=== PATIENT | female | born 1965 | race Caucasian/White ===

== ENCOUNTER 2017-12-21 17:00 | Inpatient (IN) | payer OTHER, MEDICAID ==
[~2017-12-21] VITALS: Ht 152.4 cm; Wt 32.5 kg
[2017-12-21 17:02] VITALS: BP 142/71
[2017-12-21 17:21] LABS: ABSOLUTE LYMPHOCYTES 1.1 thou/uL (0.8-5.3); ABSOLUTE MONOCYTES 0.5 thou/uL (0.0-1.2); ABSOLUTE NEUTROPHILS 4.4 thou/uL (1.6-8.1); BASOPHILS 0.7 %; EOSINOPHILS 0.2 %; HEMOGLOBIN 8.6 gm/dL (12.0-15.0); LYMPHOCYTES 17.8 %; MCH 24.9 pg (26.0-34.0); MCHC 30.9 g/dL (28.0-37.0); MCV 80.6 fL (80.0-100.0); MONOCYTES 7.7 %; MPV 7.6 fl. (7.2-11.1); NUCLEATED RBCS 0 /100WBC; PLATELET COUNT* 816 thou/uL (150-400); POLYS 73.6 %; RBC 3.47 mil/uL (4.20-5.00); RDW-CV 23.5 % (10.5-14.5)
[2017-12-21 17:27] LABS: ANION GAP 7 mmol/L (7-16); BUN 24 mg/dL (7-18); CALCIUM 9.7 mg/dL (8.5-10.1); CHLORIDE 99 mmol/L (98-107); CO2 28 mmol/L (21-32); CREATININE 0.5 mg/dL (0.6-1.3); GLUCOSE 85 mg/dL (70-99); SODIUM 134 mmol/L (136-145)
[2017-12-21 17:38] LABS: ALBUMIN 2.8 g/dL (3.4-5.0); ALKALINE PHOSPHATASE 117 U/L (46-116); LIPASE 91 U/L (73-393); SGOT 13 U/L (15-37); SGPT 9 U/L (30-65); TOTAL BILIRUBIN 0.3 mg/dL (<0.1-1.0); TOTAL PROTEIN 9.5 g/dL (6.4-8.2); TROPONIN-I LEVEL <0.06 ng/mL (<0.06)
[2017-12-21 17:57] LABS: INR 2.6; PROTIME 24.8 Seconds (9.20-11.50)
[2017-12-21] MEDS ORDERED: OPIUM TINCTURE PO (18:03)
[2017-12-21] MEDS ORDERED: COLESTID1 GM PO (18:04)
[2017-12-21] MEDS ORDERED: ZOFRAN ODT4 M1 PO (18:04)
[2017-12-21] MEDS ORDERED: SYNTHROID75 MCG PO (18:06)
[2017-12-21] MEDS ORDERED: DOLOPHINE HCL10 MG PO (18:06)
[2017-12-21] MEDS ORDERED: XANAX 0.25 MG0.25 MG PO (18:06)
[2017-12-21 18:17] LABS: PLATELET ESTIMATE INCREASED
[2017-12-21 18:19] LABS: ANISOCYTOSIS 2+; LARGE PLATELETS OCCASIONAL
[2017-12-21 18:20] LABS: MICROCYTES 1+
[2017-12-21] MEDS ORDERED: MELATONIN5 M1 PO (18:22)
[2017-12-21] MEDS ORDERED: ZYRTEC10 M4 PO (18:22)
[2017-12-21 20:11] VITALS: BP 133/81
[2017-12-21 21:00] VITALS: BP 132/78
[2017-12-21] MEDS ORDERED: KEPPRA 500 MG500 M1 PO (22:04)
[2017-12-21] MEDS ORDERED: MUCINEX600 MG PO (22:05)
[2017-12-21] MEDS ORDERED: IRON325 PO (22:06)
[2017-12-21] MEDS ORDERED: LOPERAMIDE 2 MG2 M1 PO (22:06)
[2017-12-21] MEDS ORDERED: PEPCID20 MG PO (22:06)
[2017-12-21] MEDS ORDERED: DUONEB 2.5-0.5 M3 ML INH (22:07)
[2017-12-21] MEDS ORDERED: CLARITIN10 MG PO (22:08)
[2017-12-21] MEDS ORDERED: UNICOMPLEX M TA1 TA1 PO (22:09)
[2017-12-21] MEDS ORDERED: ZOFRAN ODT4 MG DISSOLVE (22:09)
[2017-12-21] MEDS ORDERED: TYLENOL325 MG PO (22:10)
[2017-12-21] MEDS ORDERED: TESSALON PERLE100 MG PO (22:10)
[2017-12-21] MEDS ORDERED: LOMOTIL TABLET1 EACH PO (22:11)
[2017-12-21] MEDS ORDERED: COUMADIN 5 MG TA5 M1 PO (22:12)
[2017-12-21] MEDS ORDERED: PROTONIX40 M1 PO (22:13)
[2017-12-21] MEDS ORDERED: TEARS AGAIN15 ML OPHTHALMIC (22:19)
[2017-12-21] MEDS ORDERED: DOXYCYCLINE 10100 MG PO (22:20)
[2017-12-22 08:00] VITALS: BP 121/51
[2017-12-22 09:48] LABS: HEMATOCRIT 22.5 % (37.0-47.0); MPV 6.9 fl. (7.2-11.1); NUCLEATED RBCS 0 /100WBC
[2017-12-22 09:50] LABS: ABSOLUTE BASOPHILS 0.1 thou/uL (0.0-0.2); ABSOLUTE EOSINOPHILS 0.1 thou/uL (0.0-0.7); ABSOLUTE LYMPHOCYTES 0.8 thou/uL (0.8-5.3); ABSOLUTE NEUTROPHILS 4.7 thou/uL (1.6-8.1); BASOPHILS 0.9 %; LYMPHOCYTES 11.8 %; MCH 24.7 pg (26.0-34.0); MCHC 30.6 g/dL (28.0-37.0); MCV 80.8 fL (80.0-100.0); MONOCYTES 15.6 %; PLATELET COUNT* 748 thou/uL (150-400); POLYS 70.7 %; RBC 2.78 mil/uL (4.20-5.00); RDW-CV 23.3 % (10.5-14.5); WBC 6.7 thou/uL (4.0-11.0)
[2017-12-22 09:53] LABS: HEMOGLOBIN 6.9 gm/dL (12.0-15.0)
[2017-12-22 09:54] LABS: CALCIUM 8.7 mg/dL (8.5-10.1); CREATININE 0.5 mg/dL (0.6-1.3); POTASSIUM 3.3 mmol/L (3.5-5.1)
[2017-12-22 10:07] LABS: PLATELET ESTIMATE INCREASED
[2017-12-22 10:09] LABS: ANISOCYTOSIS 2+
[2017-12-22 10:12] LABS: MICROCYTES 1+
[2017-12-22 10:13] LABS: HYPOCHROMASIA 1+
[2017-12-22 14:15] VITALS: BP 117/66; BP 121/62; BP 122/65; BP 127/63; BP 128/56
[2017-12-22 16:07] LABS: % SATURATION 4 % (20-39); IRON 10 ug/dL (50-175)
--- NOTE | 2017-12-22 17:07 | EKG ---
[place] [address] ELECTROCARDIOGRAM REPORT Name: MICHELLE VERONICA Room: [address] IN [facility]#: [id number] Admission: 12/21/17 Attend Phys: Khris Cueva Discharge: Date of : 67 Report #: [id number] THIS REPORT FOR: //name// [facility] ED Test Date: 2017-12-21 Test Time: 17:02:11 Pat Name: MICHELLE VERONICA Department: Room: Gender: F [employer] House Worker: : 1965 Requested By: Norman Elizondo Order Number: [id number] MD: Narinder Medellin Measurements Intervals [place] Rate: 77 P: 72 [place]: 127 QRS: 72 QRSD: 89 T: 58 QT: 474 QTc: 537 Interpretive Statements Sinus rhythm Abnormal R-wave progression, early transition Consider left ventricular hypertrophy Prolonged QT interval No previous ECG available for comparison Electronically Signed On 12-22-2017 17:07:22 CDT by Narinder Medellin [email or web address] <ELECTRONICALLY SIGNED> By: Narinder Medellin MD, [facility] 12/22/17 1707 170 01 Narinder Medellin MD, [facility] /EPI
[2017-12-22 20:21] LABS: HEMATOCRIT 31.3 % (37.0-47.0)
[2017-12-22 20:23] LABS: HEMOGLOBIN 9.8 gm/dL (12.0-15.0)
[2017-12-22 20:33] VITALS: BP 145/69
[2017-12-22 21:20] LABS: BE 0.4 mmol/L (-2 to +3); HCO3 25.4 mmol/L (22.0-26.0); PCO2 42.9 mmHg (35.0-45.0); pH 7.391 (7.340-7.450)
[2017-12-22 23:00] VITALS: BP 119/72
[2017-12-22 23:28] LABS: URINE BILIRUBIN NEGATIVE (Negative); URINE BLOOD 1+ (Negative); URINE CLARITY CLEAR; URINE COLOR YELLOW; URINE GLUCOSE-RANDOM NEGATIVE (Negative); URINE KETONES NEGATIVE (Negative); URINE NITRITE-REFLEX NEGATIVE (Negative); URINE PROTEIN NEGATIVE (Negative); URINE UROBILINOGEN 0.2 E.U./dl (0.2-1.0)
[2017-12-22 23:43] LABS: URINE LEUKOCYTES-REFLEX 3+ (Negative)
[2017-12-23] VITALS (22 sets, daily range): BP systolic 101–140; BP diastolic 42–766
[2017-12-23 01:32] LABS: BACTERIA-REFLEX 1-9 Few /HPF (None Seen); CASTS None Seen /LPF (None Seen); SQUAMOUS NONE SEEN /LPF (0-3); URINE RBC 3-10 Few /HPF (0-2); URINE WBC-REFLEX >25 Many /HPF (0-5)
[2017-12-23 01:33] LABS: CRYSTALS None Seen /LPF (None Seen); YEAST-REFLEX Present (None Seen)
[2017-12-23 02:07] LABS: IgA 497 mg/dL (87-352); IgG 1550 mg/dL (700-1600); IgM 96 mg/dL (26-217)
[2017-12-23 04:34] LABS: HEMATOCRIT 32.6 % (37.0-47.0); HEMOGLOBIN 10.1 gm/dL (12.0-15.0); MCH 24.9 pg (26.0-34.0); MCHC 31.1 g/dL (28.0-37.0); MCV 79.9 fL (80.0-100.0); MPV 7.5 fl. (7.2-11.1); NUCLEATED RBCS 0 /100WBC; PLATELET COUNT* 753 thou/uL (150-400); RBC 4.08 mil/uL (4.20-5.00); RDW-CV 21.7 % (10.5-14.5); WBC 12.4 thou/uL (4.0-11.0)
[2017-12-23 05:06] LABS: CALCIUM 9.2 mg/dL (8.5-10.1); CREATININE 0.6 mg/dL (0.6-1.3)
[2017-12-23 05:24] LABS: POTASSIUM 2.5 mmol/L (3.5-5.1)
[2017-12-23 07:04] LABS: ABSOLUTE EOSINOPHILS 0.1 thou/uL (0.0-0.7); ABSOLUTE LYMPHOCYTES 0.1 thou/uL (0.8-5.3); ABSOLUTE MONOCYTES 2.5 thou/uL (0.0-1.2); ABSOLUTE NEUTROPHILS 9.7 thou/uL (1.6-8.1)
[2017-12-23 07:05] LABS: ANISOCYTOSIS 2+; PLATELET ESTIMATE INCREASED; POLYCHROMASIA 1+
[2017-12-23 07:59] LABS: INR 2.4; PROTIME 23.2 Seconds (9.20-11.50)
[2017-12-24] VITALS (19 sets, daily range): BP systolic 86–162; BP diastolic 39–94
[2017-12-24 04:00] LABS: ABSOLUTE BASOPHILS 0.1 thou/uL (0.0-0.2); ABSOLUTE LYMPHOCYTES 0.7 thou/uL (0.8-5.3); ABSOLUTE NEUTROPHILS 6.7 thou/uL (1.6-8.1); BASOPHILS 0.7 %; EOSINOPHILS 0.4 %; HEMATOCRIT 27.5 % (37.0-47.0); HEMOGLOBIN 8.7 gm/dL (12.0-15.0); LYMPHOCYTES 8.7 %; MCHC 31.6 g/dL (28.0-37.0); MCV 79.2 fL (80.0-100.0); MONOCYTES 11.3 %; MPV 7.2 fl. (7.2-11.1); NUCLEATED RBCS 0 /100WBC; PLATELET COUNT* 681 thou/uL (150-400); POLYS 78.9 %; RBC 3.47 mil/uL (4.20-5.00); RDW-CV 22.3 % (10.5-14.5); WBC 8.6 thou/uL (4.0-11.0)
[2017-12-24 04:03] LABS: INR 2.3; PROTIME 22.1 Seconds (9.20-11.50)
[2017-12-24 04:13] LABS: ALBUMIN 2.3 g/dL (3.4-5.0); CALCIUM 9.2 mg/dL (8.5-10.1); CREATININE 0.5 mg/dL (0.6-1.3); MAGNESIUM 2.3 mg/dL (1.8-2.4); POTASSIUM 3.8 mmol/L (3.5-5.1); TOTAL BILIRUBIN 0.3 mg/dL (<0.1-1.0); TOTAL PROTEIN 7.3 g/dL (6.4-8.2)
--- NOTE | 2017-12-24 09:41 | CON ---
[address] [address] CONSULTATION Name: MICHELLE ALSTON Room: [address] IN [facility]#: [id number] Admission: 12/21/17 Attend Phys: Khris Cueva Discharge: Date of : 67 Report #: [id number] THIS REPORT FOR: //name// CC: Brian Fitzgerald DATE OF SERVICE: 12/23/2017 CONSULTATION: Infectious diseases. HISTORY OF PRESENT ILLNESS: Michelle Alston is a very debilitated 52-year-old female who comes to the hospital with chief complaint of hemoglobin of 6.9. The patient had been hospitalized at [facility] from 12/06/2017 to 12/14/2017 for anemia and pneumonia. Apparently, she was discharged with a hemoglobin of 7.0. The patient says that she has had chest pain and abdominal pain in the last few weeks, but none currently. She presented to the ER. She was not happy with the [facility] and wanted to come to a different hospital. Workup demonstrated fecal impaction, right lower lobe infiltrate with air bronchograms and positive C. difficile PCR test. In this setting, Infectious Disease consultation was requested. PAST MEDICAL HISTORY: Shows the patient has been very debilitated by multiple sclerosis and her case has been further complicated by lupus and rheumatoid arthritis. The patient has a diagnosis of ulcerative colitis and short bowel syndrome. The patient denies having any history of C. difficile disease and said she tends to have chronic diarrhea because of the short gut. During recent hospitalization, she was diagnosed with deep vein thrombosis and pulmonary embolus and was placed on warfarin. Other conditions include hypothyroidism, chronic low back pain requiring methadone. MEDICATION RECONCILIATION: Vancomycin 125 mg p.o. q. 6 hours, potassium chloride p.o., pantoprazole 40 mg IV b.i.d., Zosyn 3.375 grams IV every 6 hours, sodium phosphate, magnesium IV and p.o., potassium 20 mEq q. 2 hours p.r.n. low potassium, methadone 5 mg b.i.d., bisacodyl 10 mg rectal daily p.r.n., hydralazine 10 mg q. 6 hours p.r.n., docusate 100 mg p.o. daily, MiraLax 17 grams p.o. daily, multivitamin with minerals daily, loratadine 10 mg daily, levetiracetam 500 mg p.o. b.i.d., guaifenesin 600 mg b.i.d., colestipol 1 gram daily, iron 325 mg b.i.d., L-thyroid 0.075 mg daily, Zofran 4 mg p.o. q. 8 hours p.r.n., melatonin 5 mg at bedtime, benzonatate 100 mg p.o. t.i.d., alprazolam 0.25 mg p.o. t.i.d., Tylenol 650 mg p.o. q. 6 hours p.r.n., albuterol inhaler 3 mL q.i.d., Lasix 40 mg 1 time dose in the ER. The patient was on doxycycline 100 mg b.i.d. prior to coming to the hospital. ALLERGIES: THE PATIENT HAS A HISTORY OF SULFA ALLERGY. FAMILY HISTORY: [place] [address] CONSULTATION Name: MICHELLE ALSTON Room: [address] IN [facility].#: [id number] Admission: 12/21/17 Attend Phys: Khris Cueva Discharge: Date of : 67 Report #: [id number] SOCIAL HISTORY: The patient is single. She has no children. She was living in the [facility], but recently moved back to [place] because her father lives here. She has a father age 8282 years old and unable to visit her in her fci. She does require chronic skilled facility because of her debility. She is generally bedbound and says she really does not get up to the wheelchair because it is too painful. She can use a commode if there are grab bars available. No history of tobacco, alcohol nor illegal drugs. The patient has been disabled since 2000. 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 REVIEW OF SYSTEMS: CONSTITUTIONAL: Somewhat difficult because the patient has a very weak voice, does not articulate clearly because of her multiple sclerosis and is very hard to understand. She said that she is very uncomfortable. She knows she is very weak. She is not complaining of fevers, chills or sweats. She is not complaining of headache. She notes difficulty swallowing and has a weak cough. The patient is not complaining of chest pain currently. She is not complaining of shortness of breath. GASTROINTESTINAL: She is complaining of increased hunger. She is complaining of constipation with some abdominal discomfort, but no severe pain. GENITOURINARY: No complaints. EXTREMITIES: Weak, uncomfortable, no complaints. PHYSICAL EXAMINATION: GENERAL: The patient appears much older than her stated age, very weak, uncomfortable, but not in any distress. VITAL SIGNS: Show maximum measured temperature 98.6, blood pressure 142/71. Her weight initially was recorded as 75 pounds and then 2 days later a followup weight was 61 pounds. She received one dose of diuretics. SKIN: Shows some erythema over pressure points and a small breakdown over the sacrum. ENT: Shows temporal wasting. NECK: Supple. HEART: Sounds S1, S2. Difficult to auscultate because the patient is so thin. RESPIRATORY: Breath sounds are coarse and diminished. The patient had a small cough and she was having breakfast when I visited. ABDOMEN: The belly is scaphoid, soft, not tender. EXTREMITIES: Very thin. LABORATORY EXAMINATION: The white count initially was 6.0 and today is 12.4 with 29% polys and 49% bands, hemoglobin was initially 6.9 and is up to 10.1 with transfusion, hematocrit 32.6, platelets 753,000. Electrolytes: Sodium 140, potassium 2.5, chloride 99, bicarbonate 28, BUN 23, creatinine 0.6, glucose 75. The iron level was 10, represent 4% saturation. Total iron binding capacity was low at 242. Prealbumin was low at 10. The urinalysis shows greater than 25 white cells. Urine culture is pending[place] [address] CONSULTATION Name: JEREMÍASMICHELLE C Room: [address] IN ..#: [id number] Admission: 12/21/17 Attend Phys: Khris Cueva Discharge: Date of : 67 Report #: [id number] difficile nucleic acid was positive. The INR was 2.4. CT angiogram showed the right lower lobe infiltrate. No acute pulmonary emboli. In summary, the patient who was transferred from her fci to acute care for reasons which are not apparent from the records which I reviewed. The patient really cannot tell me what changed in her chronic condition. She is significantly anemic, but this has been somewhat chronic and attributed to her ulcerative colitis and possible GI bleed. The patient also has a positive C. difficile titer, but gives me no history of C. difficile disease. She appears to be at risk for aspiration and does have an infiltrate. The patient represents a challenging problem in that she appears to have infections in the urinary and pulmonary systems, but has a positive C. difficile titer, making antibiotic treatment significantly more problematic. In addition, she is severely malnourished with low iron, low electrolytes, low protein, and significantly underweight. I suggest we simplify the antibiotics from vancomycin and Zosyn to cefepime 500 mg IV every 12 hours. This is not ideal for aspiration pneumonia, but covers most of the cantu pathogens and is less likely to reactivate C. difficile compared to the vancomycin and Zosyn. The patient should be on prophylactic vancomycin and received probiotics. Sputum culture if possible would be helpful to further direct therapy. We can do an MRSA swab of the nares. With the patient's poor nutrition, I would like to check CMP, magnesium levels and zinc levels. I would like the dietitian to bring protein supplements. The patient says she can drink up to 5 strawberry Ensures a day. The patient has a history of hypothyroidism, so we should check TSH. Jc might be a helpful supplement, but I think it is more important the patient take protein and I do not think she should take as much protein as she can. We will have the wound care center nurse evaluate the patient after the seekend. I suspect that she may benefit from a low air loss mattress because of the skin breakdown and risk for further breakdown. I appreciate the opportunity to offer input in the care of this complex patient. I will be happy to follow her through the weekend until Dr. Carson returns on Monday. Thank you for this consultation. <ELECTRONICALLY SIGNED> By: Kimo Garcia MD 12/24/17 0941 [id number] [id number] Garcia MD /claude
[2017-12-24 16:45] LABS: BE 1.6 mmol/L (-2 to +3); HCO3 26.3 mmol/L (22.0-26.0); PCO2 41.7 mmHg (35.0-45.0); PO2 110.9 mmHg (75.0-100.0); pH 7.417 (7.340-7.450)
[2017-12-25] VITALS (9 sets, daily range): BP systolic 80–159; BP diastolic 39–92
[2017-12-25 06:32] LABS: HEMATOCRIT 36.3 % (37.0-47.0); MCH 24.3 pg (26.0-34.0); MCHC 29.5 g/dL (28.0-37.0); MCV 82.4 fL (80.0-100.0); MPV 7.1 fl. (7.2-11.1); NUCLEATED RBCS 0 /100WBC; RBC 4.41 mil/uL (4.20-5.00); RDW-CV 22.5 % (10.5-14.5); WBC 23.2 thou/uL (4.0-11.0)
[2017-12-25 06:37] LABS: HEMOGLOBIN 10.7 gm/dL (12.0-15.0); PLATELET COUNT* 811 thou/uL (150-400)
[2017-12-25 06:47] LABS: ALBUMIN 2.3 g/dL (3.4-5.0); CALCIUM 9.9 mg/dL (8.5-10.1); CREATININE 0.6 mg/dL (0.6-1.3); POTASSIUM 3.9 mmol/L (3.5-5.1); TOTAL BILIRUBIN 0.3 mg/dL (<0.1-1.0); TOTAL PROTEIN 8.8 g/dL (6.4-8.2)
[2017-12-25 06:50] LABS: INR 2.2
[2017-12-25 06:51] LABS: PREALBUMIN 10.6 mg/dL (18.0-35.7)
[2017-12-25 08:01] LABS: ABSOLUTE LYMPHOCYTES 1.6 thou/uL (0.8-5.3); ABSOLUTE MONOCYTES 0.9 thou/uL (0.0-1.2); ABSOLUTE NEUTROPHILS 20.6 thou/uL (1.6-8.1); ANISOCYTOSIS 1+; HYPOCHROMASIA 1+; PLATELET ESTIMATE INCREASED; POLYCHROMASIA 1+
[2017-12-25 08:02] LABS: POIKILOCYTOSIS 1+
--- NOTE | 2017-12-25 08:22 | CON ---
[address] [address] CONSULTATION Name: MICHELLE VERONICA Room: [address] IN .R.#: [id number] Admission: 12/21/17 Attend Phys: Khris Cueva Discharge: Date of : 67 Report #: [id number] THIS REPORT FOR: //name// CC: Brian Westbrook [facility] DICTATED BY: Kate Washington [facility] DATE OF SERVICE: 12/22/2017 Please note at the time of this dictation, the patient was seen and physically examined by myself. REASON FOR CONSULTATION: Acute anemia. HISTORY OF PRESENT ILLNESS: This is a 52-year-old female who presented to the Emergency Room with a low hemoglobin. She was sent from [facility] for hemoglobin of 7. Upon arrival to the ER, she was noted to have hemoglobin of 6.9. She denies any nausea, vomiting of any blood or any blood noted in her stools. The patient was just recently discharged from [facility] in [facility] on 12/14/2017 and in reviewing an extensive amount of records, her hemoglobin upon discharge was 7. The patient's GI, was consulted out there at [facility] and it was felt that she had no overt bleeding that no endoscopy evaluation was warranted. It appears that approximately a month ago, her hemoglobin was 10 based upon the records that we have thus far. Records have been shifted through from [facility] but there are still records to come from [facility] which have not been reviewed yet. In talking with the patient, she states the last time she had any endoscopy studies, they were done back in 2005 in [place], [place] at [facility]. The patient states she does have some difficulty swallowing as well. ALLERGIES: BACTRIM. MEDICATIONS: From home include melatonin, Colestid, Xanax, methadone, levothyroxine, Keppra, Mucinex, Imodium, iron, Pepcid, DuoNeb, Claritin, Zofran, multivitamin, Tessalon Perles, Tylenol, Lomotil, Coumadin, Protonix, doxycycline and artificial tears. PAST MEDICAL HISTORY: History of MS, lupus, rheumatoid arthritis, ulcerative colitis, history of PE, history of C. diff, fibromyalgia, severe malnutrition, short gut syndrome, chronic back pain. PAST SURGICAL HISTORY: She has had an ileocolonic resection done in the past. FAMILY HISTORY: [place] [address] CONSULTATION Name: MICHELLE VERONICA Room: [address] IN [facility]#: [id number] Admission: 12/21/17 Attend Phys: Khirs Cueva Discharge: Date of : 67 Report #: [id number] SOCIAL HISTORY: The patient resides in a long-term care facility. REVIEW OF SYSTEMS: Twelve-point review of systems is essentially negative except what is mentioned in the HPI. PHYSICAL EXAMINATION: VITAL SIGNS: 36.4, pulse 79, respirations 20, blood pressure 132/78. GENERAL APPEARANCE: The patient is extremely cachectic and anorexic looking. She is alert and oriented. HEART: Regular rate and rhythm. LUNGS: Clear. ABDOMEN: Soft, positive bowel sounds in all 4 quadrants with abdominal hernias noted. LABORATORY DATA: Hemoglobin is 6.9. Her MCV is 80.8, white count is 22.5, white count is 6.7, platelets are 748. Sodium 137, potassium 3.3, chloride 103, CO2 of 27, BUN is 21, creatinine 0.5, GFR is 130, glucose is 76. PT is 24.8. INR is 2.6, total protein is 9.5 and albumin is 2.8. CT of the abdomen and pelvis indicate markedly large amount of retained stool within the rectum with some rectal distention. Abdominal x-ray shows diffuse gaseous distention of the colon with impaction noted. IMPRESSION: 1. Anemia, acute. 2. Anticoagulant therapy warfarin secondary to pulmonary embolism. 3. Fecal impaction. 4. Severe malnutrition. 5. History of multiple sclerosis, rheumatoid arthritis, ulcerative colitis. PLAN: 1. We will await further records for [facility] for review. We will need to hold her warfarin and hospitalist is considering evaluation with an IVC filter with her ongoing anemia. 2. Continue to monitor for overt bleeding. 3. We will do a Dulcolax suppository and can be followed with soapsuds enema to help with her fecal impaction. 4. Consider EGD, possibly after reviewing the rest of her records from [facility]. Thank you for allowing us to participate in this patient's care. Please do not hesitate to call with any questions in regard to this consult. ADDENDUM The patient with history of anemia, who was recently in [facility] with [address] [address] CONSULTATION Name: MICHELLE VERONICA Room: [address] IN [facility].#: [id number] Admission: 12/21/17 Attend Phys: Khris Cueva Discharge: Date of : 67 Report #: [id number] hemoglobin of 7. The patient apparently was not scoped since they did not feel that she has active bleeding. Her hemoglobin currently is 6.9. She is on anticoagulation therapy for history of PE. There is also evidence of fecal impaction per imaging. We will consider soap water enemas to help with fecal impaction. We will hold warfarin and consider endoscopic evaluation when the patient's INR is within normal limits. <ELECTRONICALLY SIGNED> By: Johnathon Pardo MD 12/25/17 0822 1232 [id number] Pardo MD /nt
--- NOTE | 2017-12-26 08:19 | CON ---
[address] [address] CONSULTATION Name: MICHELLE VERONICA Room: [address] IN M.R.#: [id number] Admission: 12/21/17 Attend Phys: Khris Cueva Discharge: 12/25/17 Date of : 67 Report #: [id number] THIS REPORT FOR: //name// CC: Brian Fitzgerald DATE OF SERVICE: 12/22/2017 REQUESTING PHYSICIAN: Dr. Weaver. REASON FOR CONSULTATION: Respiratory failure. DISCUSSION: The patient is a 52-year-old woman who has a history of severe end-stage multiple sclerosis. She was just recently hospitalized at [facility], that was discharged not too long ago and went to a nursing facility. She presented to the Emergency Department yesterday evening. She had been having a drop in her H and H noted. She was sent to the ED here. She had scanning done of her abdomen. It does show a right lower lobe infiltrate. She has been admitted. She has not been to this facility previously. She is anticoagulated now with warfarin, and she was found to have pulmonary embolism when she was at [facility]. Does not have an IVC filter in place. At the time I saw her, she was in the process of being transferred for a PICC line. I was able to obtain some history from her. Otherwise, much was obtained from Dr. Weaver as well as from records obtained from [facility]. She had a fairly long stay at [facility]. She is extremely thin, malnourished and quite cachectic. She has had PEG tubes in the past, but refuses any further PEG tubes. She states she only was hoping to gain weight, so she will be stronger. She has consistently remained a full code, though hospice apparently had been recommended. She declined. She relocated to this area several years ago. She had been down at [place] and evaluation done at [facility]. She has had recurrent episodes of aspiration pneumonia. She does note that she has been intubated previously. Denies any trach. As noted above, she has essentially end-stage MS. Currently, was not a candidate for any additional treatment. She has had recurrent episodes of pneumonia and anemia. It appears that it has been several years since she had had endoscopies done. Reviewing records from [facility], apparently does have a history of ulcerative colitis, short gut syndrome. Did have subsegmental PE. [place] [address] CONSULTATION Name: MICHELLE VERONICA Room: [address] IN M..#: [id number] Admission: 12/21/17 Attend Phys: Khris Cueva Discharge: 12/25/17 Date of : 67 Report #: [id number] right leg. Does not have an IVC filter. Records from [facility] also indicate that CAT scanning done there besides showing a PE, did show multifocal pneumonia, trouble with secretions. She met with Palliative Care as well. Apparently, the staff there had recommended a PEG tube. She had declined. Also recommended hospice care. She was not open to that, still wants to be full code. Blood gases done there did not show any hypercapnia. She had a normal pCO2 of 40. She does have chronic pain. In talking with her, she has been seen at a variety of different facilities, [facility]. Living in [place], had care at [facility]. She came to this area several years ago. As noted, she had a recent stay at [facility], but tells me she does not want to go back there. She was not happy with the care. Also, unhappy at [facility] as apparently they did not give her the methadone and Xanax that she felt that she needed ALLERGIES: AT THE TIME ADMITTED HERE, SHE HAS ALLERGIES TO SULFA. CURRENT MEDICATIONS: Have been levothyroxine, melatonin, Colestid, alprazolam, methadone, Keppra, guaifenesin, Imodium, ferrous sulfate, Pepcid, DuoNeb q.i.d., loratadine, multivitamins, p.r.n. Zofran, Tessalon Gregoryes p.r.n. cough, p.r.n. acetaminophen, Lomotil tablets, warfarin, Protonix, artificial tears, doxycycline. SOCIAL HISTORY: Currently nonsmoker. Unknown if she has been a smoker in the past. FAMILY HISTORY: Per the notes indicate she does have a family history of MS. REVIEW OF SYSTEMS: Unable to obtain extensive from the patient. Generally weak. Essentially, the bed or wheelchair bound. Difficulty swallowing. Complaining of pain. Denies syncopal episodes. PHYSICAL EXAMINATION: GENERAL APPEARANCE: The patient is a woman who looks much older than her stated age. She is profoundly thin, cachectic and chronically ill appearing. She is able to speak in full sentences. Has O2 running via nasal cannula. HEENT: Head is normocephalic, but was extremely thin and gaunt. Sclerae nonicteric. Mucous membranes do look dry. NECK: Veins are little full. Trachea appears midline. No tracheostomy scar is noted. HEART: Tones little distant, but are regular. She is mildly tachycardic. LUNGS: Sounds anteriorly, sound clear. ABDOMEN: Slightly distended, soft, is not guarding. EXTREMITIES: Very thin, marked muscle wasting is noted. [address] [address] CONSULTATION Name: MICHELLE VERONICA Room: [address] IN R.#: [id number] Admission: 12/21/17 Attend Phys: Khris Cueva Discharge: 12/25/17 Date of : 67 Report #: [id number] SKIN: Turgor is fair. NEUROLOGIC: She does appear alert and oriented x 3. LABORATORY AND X-RAY FINDINGS: Here at [facility], she had CT scan done of her abdomen and pelvis. No free air. It did show gaseous distention of the colon. On her CT chest, she did have right lower lobe infiltrate noted with air bronchograms. Left lung base was clear. Large amount of retained stool. On her chemistry, BUN is 21, creatinine 0.5, potassium is 3.3, albumin 2.8. Hemoglobin yesterday 8.6, down to 6.9 today. Platelets 748,000. Prealbumin only 10.1. UA is pending. IMPRESSION: 1. Right lower lobe infiltrate, seen on CT scan. Per reports from [facility], most likely represents residual of her pneumonia. She was treated for it there. She has had recurrent episodes of aspiration pneumonia. Also, given her severe nutritional deficiencies, certainly will be difficult for her to adequately recover from infections. 2. Anemia, probably gastrointestinal. She has not had evidence of active bleeding seen. She has been anticoagulated, which is in process of have been stopped. 3. Progressive end-stage multiple sclerosis. It appears her prognosis is extremely poor. 4. Severe protein calorie malnutrition. She refuses a PEG tube. 5. Pulmonary embolism and right deep venous thrombosis. RECOMMENDATIONS: 1. Difficult situation. Appears palliative care. Medical records were obtained from [facility]. She has been in additional facilities in the past. Long-term extremely poor prognosis. Unfortunately, most of these problems are not curable. She is declining PEG tube. 2. Discuss with Dr. Weaver. If up, to keep her off warfarin and place IVC filter that may certainly be reasonable. 3. Unfortunately, she does need to establish and keep followup with physicians. If she would deteriorate and require intubation, would need input on how long she would remain on the ventilator with no tracheostomy done, PEG tube, etc. <ELECTRONICALLY SIGNED> By: Alissa Schofield MD 12/26/17 0819 1201 [id number] Schofield MD /nt
--- NOTE | 2017-12-26 09:45 | CON ---
[address] [address] CONSULTATION Name: MICHELLE VERONICA Room: [address] [place] .R.#: [id number] Admission: 12/21/17 Attend Phys: Khris Cueva Discharge: 12/25/17 Date of : 67 Report #: [id number] THIS REPORT FOR: //name// CC: Brian Fitzgerald DATE OF SERVICE: 12/22/2017 REASON FOR CONSULTATION: Anticoagulation. SUBJECTIVE: A 52-year-old female who had an extensive past medical history including MS who has been admitted at [facility] and most recently diagnosed with a DVT and PE, has been placed on Coumadin for anticoagulation. The patient was transferred from the longterm because of low hemoglobin. The patient was seen at the GI and felt not to be a candidate for endoscopic evaluation. She did not have any IVC filter. At the time of evaluation today, the patient looked extremely cachectic. She was complaining of pain around her hernia. She was receiving transfusion. The patient denies any active bleeding. REVIEW OF SYSTEMS: All systems were reviewed. It was negative except the above. PAST MEDICAL HISTORY: End-stage multiple sclerosis, hypothyroidism, recent DVT and PE and GI bleed, DVT in the right lower extremities, no IVC filter, ulcerative colitis. MEDICATIONS: Per admission list. SOCIAL HISTORY: No smoking. No alcohol abuse, no drug abuse. FAMILY HISTORY: Positive for MS. ALLERGIES: She is allergic to BACTRIM. PHYSICAL EXAMINATION: VITAL SIGNS TODAY: Her temperature is 36.4, pulse is 79, respirations 20, blood pressure is 132/78. SpO2 was 100% on 3 liters by physical examination. GENERAL: The patient was lying in bed. She looked very cachectic and tired. LUNGS: Clear to auscultation bilaterally. HEART: Regular rate and rhythm, S1, S2 within normal limits. LUNGS: Decreased breathing sounds. ABDOMEN: She had a very mild generalized tenderness. NEUROLOGIC: She is awake, alert. LABORATORY DATA: WBC 6.7, hemoglobin 9.6, MCV 80, platelet count 748. PT is 2.9, creatinine 0.5, total protein 9.5. CT scan of the abdomen, [place] [address] CONSULTATION Name: MICHELLE VERONICA Room: [address]#: [id number] Admission: 12/21/17 Attend Phys: Khris Cueva Discharge: 12/25/17 Date of : 67 Report #: [id number] amount of retained stool in the rectum with significant rectal distention. There is also gaseous distention of the bowel loops including the colon proximal concerning distal bowel obstruction related to large amount of fecal impaction. ASSESSMENT AND PLAN: 1. A 52-year-old female who is being evaluated because of a normocytic anemia. The patient had extensive history including advanced multiple sclerosis, recent pulmonary embolism and deep venous thrombosis, gastrointestinal bleed, failure to thrive. She is extremely emaciated. The patient has been on anticoagulation. No clinical signs of bleeding. She has a normocytic anemia with elevated protein. At this point, I do recommend supportive palliative care including transfusion to keep her hemoglobin above 8. 2. We will obtain conservative anemia workup including iron profile, B12. GI workup in progress. 3. I will obtain a serum electrophoresis since she has elevated serum protein. Agree with holding anticoagulation for a short period of time until her hemoglobin is stable. The patient had recent deep venous thrombosis and pulmonary embolism. It will be challenging to balance risk of bleeding and recurrence of her pulmonary embolism. Plan was discussed with the patient. We will follow this patient during hospitalization. <ELECTRONICALLY SIGNED> By: Percy Brock MD 12/26/17 0945 [id number] Blayne Brock MD /nt
[2017-12-26 15:11] LABS: KAPPA FREE LIGHT CHAINS 46.5 mg/L (3.3-19.4); LAMBDA FREE LIGHT CHAINS 44.6 mg/L (5.7-26.3)
[2017-12-26 16:13] LABS: GLOBULIN TOTAL 4.3 g/dL (2.2-3.9); M-SPIKE Not Observed g/dL (Not Observed)
== END 2017-12-25 23:33 | DRG 177 ==
LOC: M.ERS 17:00 → M.ICU 18:11 → M.TBA-ER 18:11 → M.3W 18:11 → M.ICU 12-22 22:40 → M.3W 12-25 14:07
PROVIDERS: Emergency Medicine Emergency Medical Services; Internal Medicine; Internal Medicine Hematology & Oncology; ADMIT Internal Medicine
PROC: 5A09457 Assistance with Respiratory Ventilation, 24-96 Consecutive Hours, Continuous Positive Airway Pressure (ICD-10-PCS; principal; 2017-12-22)
PROC: 30233N1 Transfusion of Nonautologous Red Blood Cells into Peripheral Vein, Percutaneous Approach (ICD-10-PCS; principal; 2017-12-22)
DX: J69.0 Pneumonitis due to inhalation of food and vomit (principal); E43 Unspecified severe protein-calorie malnutrition; J96.21 Acute and chronic respiratory failure with hypoxia; I26.99 Other pulmonary embolism without acute cor pulmonale; K92.2 Gastrointestinal hemorrhage, unspecified; K91.2 Postsurgical malabsorption, not elsewhere classified; I82.431 Acute embolism and thrombosis of right popliteal vein; A04.72 Enterocolitis due to Clostridium difficile, not specified as recurrent; N39.0 Urinary tract infection, site not specified; Z68.1 Body mass index [BMI] 19.9 or less, adult; M79.7 Fibromyalgia; G89.29 Other chronic pain; M54.9 Dorsalgia, unspecified; K56.41 Fecal impaction; M06.9 Rheumatoid arthritis, unspecified; E03.9 Hypothyroidism, unspecified; F41.9 Anxiety disorder, unspecified; R56.9 Unspecified convulsions; R62.7 Adult failure to thrive; D64.9 Anemia, unspecified; G35 Multiple sclerosis; Z88.2 Allergy status to sulfonamides; Z79.01 Long term (current) use of anticoagulants; Z87.891 Personal history of nicotine dependence; Z79.2 Long term (current) use of antibiotics; Z79.899 Other long term (current) drug therapy; Z82.0 Family history of epilepsy and other diseases of the nervous system